=== PATIENT | male | born 1935 | race Caucasian/White ===

== ENCOUNTER 2020-05-02 06:45 | Day surgery (SDC) | payer OTHER ==
[~2020-05-02] VITALS: Ht 177.8 cm; Wt 91.6 kg
--- NOTE | ~2020-05-02 | HEMODYNAMI ---
PATIENT:TOVA YU MEDICAL RECORD: [id number] : 35 LOCATION:[facility] ADMISSION DATE: 05/02/20 Generatedon::08 Patient name: TOVA YU Patient #: [id number] SSN: : 1935 Date of study: 05/02/2020 Page: Of Hemodynamic Procedure Report Patient Data Patient Demographics Procedure consent was obtained First Name: TOVA Gender: Male Last Name: AIMEE : 1935 Patient #: [id number] Age: 85 year(s) Race: Unknown Additional ID: [id number] Contact details Address: [place] State: [facility] Zip code: [address] Past Medical History Performed procedures and imaging results Date Procedure Procedure Results Comments Stress testing Positive->Intermediate with SPECT MPI risk Allergies: No known allergies Admission Admission Data Admission Date: 05/02/2020 Admission Time: 6:45 Arrival Date: 05/02/2020 Arrival Time: 0:00 Height (in.): 70 BSA: 2.1 (m2) Height (cm.): 177.8 BMI: 29.1 (kg/m2) Weight (lbs.): 202.83 Weight (kg.): 92 Lab Results Lab Result Date: 05/02/2020 Lab Result Time: 0:00 Biochemistry Name Units Result Min Max BUN mg/dl 16 --(---*)-- 7 18 Creatinine mg/dl 1 --(--*-)-- 0.6 1.3 eGFR ml/min 75 *-(----)-- 90 120 NONAFRICAN Procedure Procedure Types Cath Procedure Diagnostic Procedure C [facility] w/Coronaries Sedation Charges Moderate Sedation 10-24 minutes Procedure Description Procedure Date Procedure Date: 05/02/2020 Procedure Start Time: 8:51 Procedure End Time: 9:04 Procedure Staff Name Function Pancho Zhang MD Performing Physician Pamela Meneses RT Monitor Marguerite Araiza RT Scrub Pranav Marie RN Nurse Procedure Data Cath Procedure Fluoroscopy Diagnostic fluoroscopy Total fluoroscopy Time: 1.6 time: 1.6 min min Diagnostic fluoroscopy Total fluoroscopy dose: 601 dose: 601 mGy mGy Contrast Material Contrast Material Type Amount (ml) Isovue 300 70 Entry Location Entry Primary Successful Side Size Upsize Upsize Entry Closure Succes sful Closure Location (Fr) 1 (Fr) 2 (Fr) Remarks Device Remarks Femoral Right 5 Fr Exoseal artery Estimated blood loss: 10 ml Diagnostic catheters Device Type Used For End Catheter Placement MULTIPACK JL 4.0 5Fr Procedure catheter MULTIPACK 3DRC 5Fr Procedure catheter MULTIPACK Pigtail 5 Fr Ventriculography catheter Procedure Complications No complications Procedure Medications Medication Administration Route Dosage Oxygen etCO2 Nasal cannula 2 l/min Lidocaine 2% added to field 20 Heparin Flush Bag added to field 2 bags (1000units/500ml NS) 0.9% NaCl I.V. 100 ml/hr Versed I.V. 1 mg Fentanyl I.V. 50 mcg Versed I.V. 0.5 mg Fentanyl I.V. 25 mcg Hemodynamics Rest BSA: 2.1 (m2) O2 Consumption: Estimated: 235.75 (ml/min) O2 Consumption indexed: Estimated:112.26 (ml/min/m) Heart Rate: 67 (bpm) Pressure Samples Time Site Value (mmHg) Purpose Heart Use Rate(bpm) 8:59 LV 110/31,34 Snapshot 70 8:59 LV 124/9,24 Snapshot 69 9:00 AO 115/46(75) Pullback 71 9:00 LV 117/-3,14 Pullback 71 Gradients Valve Time Site 1 Site 2 Mean SEP/DFP Peak To Heart Use (mmHg) (sec/min) Peak Rate (mmHg) (bpm) Aortic 9:00 LV AO 8 17 2 71 117/-3,14 115/46(75) Calculations Valve P-P Mean Valve Index Valve Source Name Gradient Area Flow (cm2) Aortic 2 8 2 8 Snapshots Pre Cath Intra NCS Post Cath Vital Signs Time Heart Resp SPO2 etCO2 NIBP (mmHg) Rhythm Pain Sedation Rate (ipm) (%) (mmHg) Status Level (bpm) 8:39:15 73 11 96 0 141/74(108) NSR 0 (11) 10(A) , No pain 8:43:31 69 22 95 0 124/65(100) NSR 0 (11) 10(A) , No pain 8:47:47 63 55 96 0 120/60(97) NSR 0 (11) 10(A) , No pain 8:52:06 58 17 99 0 122/63(94) NSR 0 (11) 9(A) , No pain 8:56:24 67 17 99 0 127/62(97) NSR 0 (11) 9(A) , No pain 9:00:44 71 16 99 0 121/61(94) NSR 0 (11) 9(A) , No pain 9:04:55 66 16 99 22.7 117/63(96) NSR 0 (11) 10(A) , No pain Medications Time Medication Route Dose Verified Delivered Reason Notes Effe ctiveness by by 8:47:07 Oxygen etCO2 2 Pancho Buffie used for Nasal l/min Vicente Marie RN procedure cannula 8:47:14 Lidocaine 2% added 20ml Pancho Pancho for local to vial Vicente Zhang MD anesthetic field 8:47:20 Heparin Flush added 2 Pancho Pancho used for Bag to bags Vicente Zhang MD procedure (1000units/500ml field NS) 8:47:30 0.9% NaCl I.V. 100 Pancho Buffie Per ml/hr Vicente Marie RN physician 8:47:37 Versed I.V. 1 mg Pancho Buffie for Vicente Marie RN sedation 8:47:43 Fentanyl I.V. 50 Pancho Buffie for mcg Vicente Marie RN sedation 8:53:43 Versed I.V. 0.5 Pancho Buffie for mg Vicente Marie RN sedation 8:53:47 Fentanyl I.V. 25 Pancho Buffie for mcg Vicente Marie RN sedation Procedure Log Time Note 8:08:24 Informed consent obtained and on chart 8:09:35 Procedure Status Elective Heart Cath (OP). 8:09:37 Time tracking: Regular hours (M-F 7:00 - 5:00) 8:09:40 Plan of Care:Hemodynamics will remain stable., Cardiac rhythm will remain stable., Comfort level will be maintained., Respiratory function will remain adequate., Patient/ family verbilizes understanding of procedure., Procedure tolerated without complication., Recovers from procedure without complications.. 8:25:37 Patient Weight : 202.83 lbs 8:26:00 Patient Height : 70 inches 8:26:04 Arrival Date: 05/02/2020 12:00:00 AM 8:26:13 Pranav Marie RN sent for patient. Start room use. 8:26:49 H&P Date Dictated: 04/17/2020 Within 30 days and on chart., H&P Addendum completed by physician on day of procedure. (MUST COMPLETE FOR ALL OUTPATIENTS). 8:27:01 Patient allergic to No known allergies 8:30:38 Stress Test: yes; abnormal INFERIOR 8:33:15 Patient received from Pre/Post Procedure Room to CCL 1 Alert and oriented. Tansferred to table in Supine position. 8:33:16 Warm blankets applied, and yoel hugger turned on for patient comfort. 8:33:16 Correct patient and procedure confirmed by team. 8:33:17 ECG and BP/O2 sat monitors applied to patient. 8:38:04 Vital chart was started 8:40:03 Baseline sample Acquired. 8:40:07 Rhythm: sinus rhythm 8:40:09 Full Disclosure recording started 8:40:12 Pre-procedure instructions explained to patient. 8:40:14 Patient NPO since Midnight. 8:40:22 Is the patient allergic to Iodine/contrast media? No. 8:40:23 Is patient on blood thinner?No 8:40:25 Patient diabetic? Yes. 8:40:26 If diabetic: On Metformin? Yes 8:40:29 If on Metformin: Last Dose? 04/30/2020 8:40:33 Snore? Yes 8:40:34 Sleep apnea? No 8:40:38 Dentures? Yes ? 8:41:06 Modified Davian's test Ulnar > 7 seconds. 8:41:33 IV patent on arrival in left forearm with 0.9% NaCl at KVO. 8:42:06 Lab Result : BUN 16 mg/dl 8:42:06 Lab Result : Creatinine 1 mg/dl 8:42:06 Lab Result : eGFR NONAFRICAN 75 ml/min 8:42:21 Stress Test: yes; abnormal INFERIOR 8:42:26 Right groin area was prepped with chlora-prep and draped in sterile fashion 8:42:27 Alarms reviewed by RDanika NDanika 8:42:27 Sharps counted by scrub and verified by RDanikaNDanika 8:42:29 Physician arrived 8:42:29 --------ALL STOP TIME OUT------ 8:42:30 Final Timeout: patient, procedure, and site verified with staff and physician. All members of the team are in agreement. 8:42:34 Right groin site verified by team. 8:42:38 Fire Safety Assessment: A--An alcohol-based skin anteseptic being used preoperatively., C--Open oxygen or nitrous oxide is being used., D--An ESU, laser, or fiber-optic light is being used. 8:42:44 Physical assessment completed. ASA score P 3 - A patient with severe systemic disease as per Pancho Zhang MD. 8:42:48 2) 60-89 Mildly reduced kidney function, and other findings (as for stage 1) point to kidney disease. 8:43:13 Maximum allowable contrast dose (3.7 X eGFR X 0.75)208 ml. 8:43:17 Sedation plan: IV Moderate Sedation Medication:Versed, Fentanyl 8:43:20 Use device set Femoral Dx 8:47:07 Oxygen 2 l/min etCO2 Nasal cannula was administered by Pranav Marie RN; used for procedure; Verbal order read back and verified. 8:47:14 Lidocaine 2% 20ml vial added to field was administered by Pancho Zhang MD; for local anesthetic; Verbal order read back and verified. 8:47:20 Heparin Flush Bag (1000units/500ml NS) 2 bags added to field was administered by Pancho Zhang MD; used for procedure; Verbal order read back and verified. 8:47:30 0.9% NaCl 100 ml/hr I.V. was administered by Pranav Marie RN; Per physician; Verbal order read back and verified. 8:47:37 Versed 1 mg I.V. was administered by Pranav Marie RN; for sedation; Verbal order read back and verified. 8:47:43 Fentanyl 50 mcg I.V. was administered by Pranav Marie RN; for sedation; Verbal order read back and verified. 8:51:13 Procedure started. 8:51:22 Local anesthetic to right femoral artery with Lidocaine 2% by Pancho Zhang MD.INITIAL ACCESS ONLY 8:52:16 Zero performed for pressure channel P1 8:53:33 A 5 Fr sheath was inserted into the Right Femoral artery 8:53:43 Versed 0.5 mg I.V. was administered by Pranav Marie RN; for sedation; Verbal order read back and verified. 8:53:47 Fentanyl 25 mcg I.V. was administered by Pranav Marie RN; for sedation; Verbal order read back and verified. 8:55:00 ACIST Syringe (92921) opened to sterile field. 8:55:01 Bag Decanter (2002S) opened to sterile field. 8:55:02 Medline Cath Pack ([id number]) opened to sterile field. 8:55:03 ACIST Hand Control (66815) opened to sterile field. 8:55:03 ACIST Manifold (64483) opened to sterile field. 8:55:04 DIAGNOSTIC Multipack 5Fr catheter set ([id number]) opened to sterile field. 8:55:05 Tegaderm 4 x 4 (1626W) opened to sterile field. 8:55:07 SHEATH 5FR [place] (IYS874) opened to sterile field. 8:55:08 EMERALD Guide Wire (341-214) opened to sterile field. 8:55:15 A MULTIPACK JL 4.0 5Fr catheter was advanced over the wire and used for Procedure. 8:55:17 LCA angiography performed. 8:56:13 Catheter removed. 8:56:21 A MULTIPACK 3DRC 5Fr catheter was advanced over the wire and used for Procedure. 8:56:26 RCA angiography performed. 8:58:49 Catheter removed. 8:58:57 A MULTIPACK Pigtail 5 Fr catheter was advanced over the wire and used for Ventriculography. 8:59:02 LV gram done using COLBERT 9:00:13 EF : 40 % 9:00:45 Catheter removed. 9:01:07 EXOSEAL 5Fr (EX500) opened to sterile field. 9:01:30 Sheath removed intact; hemostasis achieved with Exoseal to the Right Femoral artery. 9:01:31 Procedure ended.(Physican Out) 9:01:57 Fluoroscopy time 01.60 minutes. 9:02:02 Fluoroscopy dose: 601 mGy 9:02:02 Flurop Dose total: 601 9:02:10 Dose Area Product 30378 mGy/cm. 9:02:18 Contrast amount:Isovue 300 70ml. 9:02:30 Maximum allowable dose exceeded? No. 9:02:39 Post-op/insertion site Right Femoral artery dressed using a 4 x 4 and Tegaderm. 9:02:41 Post Procedure Pulses reassessed and unchanged 9:03:15 Post-procedure physical assessment completed. ASA score P 4 - A patient with severe systemic disease that is a constant threat to life as per Pancho Zhang MD. 9:03:17 Post procedure rhythm: sinus rhythm 9:03:21 Estimated blood loss: 10 ml 9:03:23 Post procedure instruction explained to patient.Patient verbalizes understanding. 9:03:58 Procedure type changed to Cath procedure, Diagnostic procedure, LHC, C w/Coronaries, Sedation Charges, Moderate Sedation 10-24 minutes 9:03:59 Procedure and supply charges have been captured, reviewed, submitted and are correct. 9:04:18 Procedure Complication : No complications 9:04:21 Vital chart was stopped 9:04:27 [facility] Findings: MVD- CABG consult 9:04:29 Operative report dictated upon procedure completion. 9:04:30 See physician's report for complete and final results. 9:04:32 Report given to Pre/Post Procedure Room. 9:04:35 Patient transfered to Pre/Post Procedure Room with Stretcher. 9:04:37 Procedure ended. 9:04:37 Full Disclosure recording stopped 9:04:45 End room use (Document Last) 9:07:03 End room use (Document Last) 9:07:37 End room use (Document Last) Device Usage Item Name Manufacture Quantity Catalog Hospital Part Current Minimal L ot# / Number Charge Number Stock Stock Serial# Code ACIST Acist 1 14542 [id number] [id number] 20 Syringe Medical (77630) Systems Inc Bag Microtek 1 2001S 338230 19316 416508 5 Decanter Medical Inc. () Medline Medline 1 [id number] 023513 39565 529117 5 Cath Pack ([id number]) ACIST Hand Acist 1 97961 920304 320721 531976 5 Control Medical (69152) Systems Inc ACIST Acist 1 81750 448885 452137 214929 5 Manifold Medical (74740) Systems Inc DIAGNOSTIC Cardinal 1 [id number] 300229 95233 400853 30 Timely Network 5Fr catheter set (LP9691) Tegaderm 4 3M 1 1626W 443078 465033 783074 5 x 4 (1626W) SHEATH 5FR Terumo 1 [id number] 268930 081789 497473 5 [place] (OSV856) EMERALD Cardinal 1 502-342 259337 301724 839167 5 Guide Wire [facility] (068-162) MULTIPACK Cardinal 1 [id number] 5 JL 4.0 5Fr [facility] catheter MULTIPACK Cardinal 1 061596 5 3DRC 5Fr [facility] catheter MULTIPACK Cardinal 1 687874 5 Pigtail 5 Health Fr catheter EXOSEAL 5Fr Cardinal 1 EX500 661534 882230 499284 10 (EX500) Health Signature Audit [place] Stage Time Signature Unsigned Intra-Procedure 05/02/2020 Pamela Meneses 9:07:03 AM RT(R) Intra-Procedure 05/02/2020 Pranav Marie RN 9:07:37 AM Intra-Procedure 05/02/2020 Pancho Zhang MD 9:08:07 AM [address] [place] [address]
[2020-05-02] MEDS ORDERED: GLUCOPHAGE500 MG PO (07:19)
[2020-05-02 07:41] VITALS: BP 170/62; Ht 177.8 cm; Wt 91.6 kg
[2020-05-02 07:59] LABS: ALT (SGPT) 22 U/L (10-68); CALC OSMOLALITY 279 mosm/kg (275-300); CALCIUM 8.8 mg/dL (8.5-10.1); CARBON DIOXIDE 24.2 mmol/L (21.0-32.0); CHLORIDE - SERUM 103 mmol/L (98-107); CHOL - HDL RATIO 3.7 ratio (2.3-4.9); CHOLESTEROL, TOTAL 181 mg/dL (0-200); GLUCOSE 150 mg/dL (74-106); HDL CHOLESTEROL 49 mg/dL (32-96); LDL CHOLESTEROL 109 mg/dL (0-100); LDL-HDL RATIO 2.2 ratio (1.5-3.5); SODIUM 138 mmol/L (136-145); TRIGLYCERIDE 118 mg/dL (30-200); UREA NITROGEN 16 mg/dL (7-18); eGFR NON AFRICAN AMERICAN 75 mL/min (90-120)
--- NOTE | 2020-05-02 09:25 | NUR ---
PT RECEIVED VIA STRETCHER BACK TO ROOM 8 FOR RECOVERY. PT SLEEPY BUT VERBALLY AROUSABLE. PT DENIES CHEST PAIN OR DISCOMFORT AT THIS TIME. R GROIN W TEGADERM DRESSING IN PLACE, DRESSING CDI. SITE SOFT, NO S/S HEMATOMA OR BLEEDING NOTED. LEG PINK AND WARM, PULSES PALPABLE. PT INSTRUCTED TO KEEP HEAD ON PILLOW AND LEG STRAIGHT, HE VERBALIZED UNDERSTANDING. IV PATENT INFUSING VIA ORDERS TO L ARM. PT PLACED ON CARDIAC MONITORS AND O2 VIA NC AT 2L. CALL LIGHT IN REACH
--- NOTE | 2020-05-02 09:45 | NUR ---
PT RESTING COMFORTABLY, DENIES PAIN OR DISCOMFORT. R GROIN SOFT, DRESSING CDI NO S/S HEMATOMA OR BLEEDING NOTED. CALL LIGHT IN REACH. VSS AT PRESENT
--- NOTE | 2020-05-02 10:20 | NUR ---
DR GONZALEZ AT BS, DISCUSSED W PT THE NEED FOR SURGERY CONSULT, PT VOICED UNDERSTANDING. R GROIN SOFT, NO S/S HEMATOMA OR BLEEDING NOTED. HOB ELEVATED SLIGHTLY, PO FLUIDS SERVED. CALL LIGHT IN REACH
--- NOTE | 2020-05-02 10:58 | NUR ---
PT TOLERATING PO FLUIDS, OFFERED SANDWICH BUT HE DECLINES AT THIS TIME. VSS AT PRESENT. R GROIN REMAINS SOFT, NO S/S HEMATOMA OR BLEEDING NOTED. CALL LIGHT IN REACH. NOTIFIED OF PT DISCHARGE TIME.
--- NOTE | 2020-05-02 11:27 | NUR ---
DISCHARGE INSTRUCTIONS REVIEWED W PT INCLUDING APPT WITH DR FISHMAN ON 05/08/20. HE VERBAIZED UNDERSTANDING. IV REMOVED W CATH INTACT, MONITORS REMOVED. R GROIN REMAINS SOFT, NO S/S HEMATOMA OR BLEEDING. PT UP TO DRESS FOR DISCHARGE
--- NOTE | 2020-05-02 11:30 | NUR ---
PT DISCHARGED VIA WC TO WAITING IN PRIVATE VEHICLE. PT REFUSED TO STOP AT [facility], STATES HE DOESNT' NEED TO GO. PT HAD ALL BELONGINGS AND DISCHARGE FOLDERS.
== END 2020-05-02 11:30 | disposition home or self-care (01) ==
LOC: D.CATH 06:45
PROVIDERS: ATTEND Internal Medicine Cardiovascular Disease
DX: I20.9 Angina pectoris, unspecified (principal); R94.39 Abnormal result of other cardiovascular function study; R06.00 Dyspnea, unspecified; I10 Essential (primary) hypertension